=== PATIENT | female | born 1950 | race Caucasian/White ===

== ENCOUNTER 2018-06-04 08:56 | Emergency (ER) | payer OTHER ==
--- NOTE | 2018-06-04 09:04 | PDOC ---
History of Present Illness - General Chief Complaint: Pain, Acute Stated Complaint: LEFT ANKLE PAIN Time Seen by Provider: 06/04/18 09:03 History Source: Patient - History of Present Illness Initial Comments: 06/04/18 09:11 The patient is a 68 year old female who presents after a fall c/o L ankle pain. Patient states she was walking outside yesterday when she slipped on a pile of wet leaves and fell on her left side. Denies any head trauma or LOC. Was immediately ambulatory afterward. Used OTC NSAIDS and ice however since her ankle still hurt this morning she came to the ED for further evaluation. The patient denies chest pain, shortness of breath, abdominal pain, nausea/ vomiting, diarrhea/constipation, dysuria/hematuria. Past History - Past Medical History Allergies/Adverse Reactions: Allergies Allergy/AdvReac Type Severity Reaction Status Date / Time aspirin Allergy Intermediate gi upset Verified 06/04/18 08:56 Home Medications: Ambulatory Orders NK [No Known Home Medication] 06/04/18 Anemia: No Asthma: No Cancer: No Cardiac Disorders: No CVA: No COPD: No CHF: No Dementia: No Diabetes: No GI Disorders: No Disorders: No HTN: No Hypercholesterolemia: Yes Liver Disease: No Seizures: No Thyroid Disease: No - Surgical History Abdominal Surgery: Yes (REZA ING HERNIA REPAIR 1986) Appendectomy: No Cardiac Surgery: No Cholecystectomy: No Lung Surgery: No Neurologic Surgery: No Orthopedic Surgery: Yes (2009 BUNIONECTOMY RT) - Suicide/Smoking/Psychosocial Hx Smoking History: Former smoker Have you smoked in the past 12 months: No If you are a former smoker, when did you quit?: 2006 Information on smoking cessation initiated: No Hx Alcohol Use: No Drug/Substance Use Hx: No Substance Use Type: None Hx Substance Use Treatment: No Review of Systems - Review of Systems Constitutional: No: Chills, Fever Respiratory: No: Cough, Shortness of Breath Cardiac (ROS): No: Chest Pain, Lightheadedness, Palpitations ABD/GI: No: Constipated, Diarrhea, Nausea, Vomiting : No: Dysuria, Hematuria *Physical Exam - Vital Signs Last Vital Signs Temp Pulse Resp BP Pulse Ox 98.4 F 86 18 126/89 100 06/04/18 08:56 06/04/18 08:56 06/04/18 08:56 06/04/18 08:56 06/04/18 08:56 - Physical Exam General Appearance: Yes: Nourished, Appropriately Dressed Neck: positive: Trachea midline, Supple Respiratory/Chest: positive: Lungs Clear, Normal Breath Sounds Cardiovascular: positive: S1, S2. negative: JVD Vascular Pulses: Dorsalis-Pedis (R): 2+, Doralis-Pedis (L): 2+ Extremity: positive: Normal Capillary Refill, Other (L lateral malleolus swelling; full ROM, 2+ DP pulse) Integumentary: positive: Normal Color, Dry, Warm Neurologic: positive: Fully Oriented, Alert Medical Decision Making - Medical Decision Making 06/04/18 09:21 68 year old female s/p fall, now c/o L ankle pain and swelling. NVI, full ROM. TTP over lateral malleolus, will x-ray as per [facility] rules. Patient declining pain medication at this time. 06/04/18 10:15 L ankle XR shows L lateral distal fibular avulsion fracture. Posterior splint applied. Will discharge home with return precautions, orthopedic follow-up and NSAIDs for pain relief. I discussed the physical exam findings, ancillary test results and final diagnoses with the patient. I answered all of the patient's questions. The patient was satisfied with the care received and felt comfortable with the discharge plan and treatment plan. The patient will return to the Emergency Department with any new, persistent or worsening symptoms. *DC/Admit/Observation/Transfer Diagnosis at time of Disposition: Ankle fracture - Discharge Dispostion Disposition: HOME Condition at time of disposition: Good Decision to Admit order: No - Referrals Referrals: Adrian Burton MD [Staff Physician] - - Patient Instructions Printed Discharge Instructions: Ankle Fracture Additional Instructions: You can take Motrin (up to 3200 mg daily) for your pain. Please make a follow-up appointment with orthopedic surgery, Dr. Burton, for further evaluation. Return to the Emergency Department for any new/worsening/concerning symptoms. - Post Discharge Activity
[2018-06-04 09:07] VITALS: BP 126/89; PULSE 86; TEMP 98.4; BMI 25.9
--- NOTE | 2018-06-04 09:16 | PDOC ---
Attending Attestation - Resident Resident Name: Delia Caputo - ED Attending Attestation I have performed the following: I have examined & evaluated the patient, The case was reviewed & discussed with the resident, I agree w/resident's findings & plan, Exceptions are as noted - HPI HPI: 06/04/18 09:15 68 yo F with no pmhx here s/p slip and fall yesterday. slipped on some leaves. today c/o left ankle pain and swelling. worse with walking. has been ambulating with difficulty. no knee or hip injury. no head injury during fall. - Medical Decision Making 06/04/18 09:16 differential sprain vs. fracture. plan pain control and xray. 06/04/18 13:39 xray with avulsion fx distal fibula. posterior splint placed. dc with crutches, and ortho followup.
== END 2018-06-04 10:40 | disposition home or self-care (01) ==
LOC: FER 08:56
PROC: 2W3RX1Z Immobilization of Left Lower Leg using Splint (ICD-10-PCS; principal; 2018-06-04)
DX: S82.832A Other fracture of upper and lower end of left fibula, initial encounter for closed fracture (principal); W18.09XA Striking against other object with subsequent fall, initial encounter; Y93.89 Activity, other specified; Y92.9 Unspecified place or not applicable; Z87.891 Personal history of nicotine dependence; E78.00 Pure hypercholesterolemia, unspecified
CPT/HCPCS: 73610-TC-LT-FY; 99283-25

== ENCOUNTER 2020-03-14 13:49 | Emergency (ER) | payer OTHER ==
[2020-03-14 14:01] VITALS: BMI 25.4
--- NOTE | 2020-03-14 14:10 | PDOC ---
History of Present Illness - General Chief Complaint: Headache Stated Complaint: HEAD & NECK PAIN Time Seen by Provider: 03/14/20 13:59 History Source: Patient Exam Limitations: No Limitations - History of Present Illness Initial Comments: 69 y/o female presenting to [place] ER complaining of brief self limiting episode of intense pain to the left temporal region lasting approx. 10-15 seconds. Occurred on Wednesday (12 Mar 2020) while she was receiving the news about the unexpected of a close friend. Denies associated jaw pain, eye redness, or blurry vision. Also reports her brother within the past week. Since the episode, the pt has been experiencing intermittent episodes of left parietal and left lateral neck pain. Described as more of a dull sensation. Made worse with neck extension. Further complaints of a few seconds of blurry vision, right upper arm numbness, and difficulty walking (but did not trip, fall, grab the wall, or require halting of ambulation). Denies fevers, chills, difficulty swallowing, slurred speech, syncope, chest pain, or SOB. Pt denies a h/o similar episodes. Does not take any AC. Denies any known chronic medical conditions. Past History - Travel History Traveled outside of the country in the last 30 days: No Close contact w/someone who was outside of country & ill: No - Medical History Allergies/Adverse Reactions: Allergies Allergy/AdvReac Type Severity Reaction Status Date / Time aspirin Allergy Intermediate gi upset Verified 03/14/20 13:54 Home Medications: Ambulatory Orders NK [No Known Home Medication] 06/04/18 Anemia: No Asthma: No Cancer: No Cardiac Disorders: No CVA: No COPD: No CHF: No Dementia: No Diabetes: No GI Disorders: No Disorders: No HTN: No Hypercholesterolemia: Yes Liver Disease: No Seizures: No Thyroid Disease: No - Surgical History Abdominal Surgery: Yes (REZA ING HERNIA REPAIR 1986) Appendectomy: No Cardiac Surgery: No Cholecystectomy: No Lung Surgery: No Neurologic Surgery: No Orthopedic Surgery: Yes (2010 BUNIONECTOMY RT) - Reproductive History Is Patient Now?: No - Psycho-Social/Smoking History Smoking History: Former smoker Have you smoked in the past 12 months: No If you are a former smoker, when did you quit?: OVER 10 YEARS AGO Information on smoking cessation initiated: No - Substance Abuse Hx (Audit-C & DAST Scrn) How often the patient has a drink containing alcohol: Never Score: In Men: 4 or > Positive; In Women: 3 or > Positive: 0 Screen Result (Pos requires Nsg. Audit-10AR): Negative In the last yr the pt used illegal drug/Rx for NonMed reason: No Score: Yes response is considered Positive: 0 Screen Result (Positive result requires Nsg. DAST-10): Negative Review of Systems - Review of Systems Able to Perform ROS?: Yes Comments:: 10 point review of systems completed. All systems negative except as noted above. *Physical Exam - Vital Signs Last Vital Signs Temp Pulse Resp BP Pulse Ox 98.1 F 86 15 152/105 H 97 03/14/20 13:51 03/14/20 13:51 03/14/20 13:51 03/14/20 13:51 03/14/20 13:51 - Physical Exam Vital signs and nursing notes reviewed. Constitutional- Well-developed, well-nourished adult female in no acute distress or obvious discomfort. Observed walking into the department unassisted without obvious difficulty or gait derangement. Examined semi-fowlers on hospital stretcher. Answered all questions appropriately and completely. Head- Normocephalic. No obvious external signs of trauma. No deformities to facial bones. No localized temporal pain with tapping or jaw movement. Eyes- Pupils 3mm and PERRL. EOMI. Sclerae white. Conjunctiva moist and not injected. Ears- Hearing grossly intact. External auditory canals and tympanic membranes pearly tucker. No hemotympanum. Nose- No nasal discharge. Neck- Supple, trachea is midline. Oral cavity- Uvula midline. No tongue deviation. Cardiovascular / Chest- Regular rate and regular rhythm. No murmur, rubs, clicks, or gallops. Peripheral pulses- radial pulses full. Respiratory- Breathing unlabored. Speaking in multi-word responses without pausing. Equal chest rise and fall. Clear to auscultation bilaterally. No stridor, no wheezing, no rhonchi. Neuro- Alert and oriented x4. Moving all four extremities spontaneously. No facial asymmetry. No slurred speech. No focal deficits. No upper or lower extremity drift. Cranial nerves intact. Sensation to all four extremities intact. Proximal and distal strength 5/5. Floral Manager strength 5/5 - equal and symmetric. Plantar flexion and dorsiflexion 5/5. No nuchal rigidity. Skin- Warm, dry, and intact. Psych- Affect- appropriate. Mood- normal. Speech was non-labored, non- pressured. ED Treatment Course - LABORATORY CBC & Chemistry Diagram: 03/14/20 15:00 03/14/20 15:00 Medical Decision Making - Medical Decision Making 69 y/o female presenting with intermittent, atraumatic left sided neck and head pain with associated brief (few seconds) and self limiting neurologic symptoms. All occurring in the setting of emotionally charged week. Suspect likely MSK spasm vs strain. Low suspicion for CVA, TIA, carotid dissection vs temporal arteritis vs meningitis vs encephalitis with unremarkable neurologic exam. Will evaluate further with CTA of brain and neck. Ordered PO Tylenol and Lidoderm patch for symptom relief. 14 Mar 2020 17:51 PM Pt reassessed. Found sitting on bed reading. Reports pain has significantly improved with the Lidoderm patch. ED Attending will f/u pending CTA results. Anticipate discharge home. Case discussed with ED Attending Dr. Mckeon. Erik Sharif M.D., PGY3 Emergency Medicine Residency Discharge - Discharge Information Problems reviewed: Yes Clinical Impression/Diagnosis: Left-sided headache, Neck pain on left side Condition: Good - Follow up/Referral Referrals: Gary Au [Primary Care Provider] - - Patient Discharge Instructions - Post Discharge Activity
[2020-03-14] MEDS ORDERED: ACETAMINOPHEN 325 MG TABLET (FP) PO ONE (14:31)
[2020-03-14] MEDS ORDERED: LIDOCAINE 5% TOPICAL PATCH TP ONE (14:31)
--- NOTE | 2020-03-14 14:34 | PDOC ---
Attending Attestation - Resident Resident Name: Erik Sharif - ED Attending Attestation I have performed the following: I have examined & evaluated the patient, The case was reviewed & discussed with the resident, I agree w/resident's findings & plan, Exceptions are as noted - HPI HPI: 03/14/20 17:40 69 years old with no significant past medical history recently under a lot of stress with the loss of 2 close friends and family experienced a sudden onset headache the other day today with neck pain associated with transient blurry vision Currently asymptomatic except for mild anterior neck discomfort no history of trauma no sudden neck movements normal neurologic examination pain is mild 5 out of 10 persistent constant slightly worse with movement - Physicial Exam PE: 03/14/20 17:41 Vitals: Triage Vital signs reviewed General Appearance: No acute distress, well nourished well developed, Head: Atraumatic, Eyes: Pupils equal reactive round, extraocular movement intact Neck: Supple; no Nucal rigidity, No bruits Chest Wall: Nontender Cardiac: Regular rate and rhythym, no murmurs, no rubs, no gallops, Lungs: Clear to auscultation bilateral, good air movement bilaterally, Abdomen: Soft, non distended, normal bowel sounds, non tender to palpation Extremities: Full range of motion to all extremities, no cyanosis, clubbing, or edema Skin: Warm and dry, no rashes or lesions, no rash, no petechiae Neuro: AOX3; cranial Nerves 2-12 grossly intact, strength intact to all extremities, sensation intact to all extremities, gait normal Psych: Normal mood, normal affect - Medical Decision Making 03/14/20 17:41 69 years old anterior neck pain with brief episode of blurry vision We will CTA to rule out dissection aneurysm CT findings as dictated. Concern for left carotid plaque and saccular aneurysm No availability for clipping at our hospital Case discussed with neurosurgery at the [facility] given patient preference Case accepted by G Dr. George. Recommends IV nicardipine and IV Keppra prior to transfer Patient consented for transfer all questions answered Discharge - Discharge Information Problems reviewed: Yes Clinical Impression/Diagnosis: Left-sided headache, Neck pain on left side Condition: Good Disposition: TRANSFER ACUTE CARE/OTHER HOSP - Follow up/Referral Referrals: Gary Au [Primary Care Provider] - - Patient Discharge Instructions - Post Discharge Activity
[2020-03-14] MEDS ORDERED: LIDOCAINE 5% TOPICAL PATCH ONE (14:45)
[2020-03-14] MEDS ORDERED: ACETAMINOPHEN 325 MG TABLET (FP) ONE (14:45)
[2020-03-14 15:40] LABS: BASO % 0.5 % (0-2.0); HEMATOCRIT 38.9 % (32.4-45.2); HEMOGLOBIN 12.5 GM/dl (10.7-15.3); LYMPH % 32.3 % (8-40); MCH 26.8 pg (25.7-33.7); MCHC 32.2 g/dl (32.0-36.0); MEAN CELL VOLUME 83.3 fl (80-96); MEAN PLT VOLUME 7.6 fl (7.5-11.1); MONO % 6.3 % (3.8-10.2); NEUT % 58.9 % (42.8-82.8); PLATELET COUNT 398 K/MM3 (134-434); RBC 4.67 M/mm3 (3.60-5.2); RDW 13.3 % (11.6-15.6); WHITE BLOOD COUNT 6.1 K/mm3 (4.0-10.8)
[2020-03-14 15:48] LABS: ALBUMIN 3.8 g/dl (3.4-5.0); BILIRUBIN,TOTAL 0.6 mg/dl (0.2-1); CALCIUM 9.5 mg/dl (8.5-10); CREATININE 0.5 mg/dl (0.55-1.3); POTASSIUM 4.4 mmol/L (3.5-5.1)
[2020-03-14] MEDS ORDERED: levETIRAcetam 500 MG/5 ML INJECTION VIAL IVPB ONE ×2 (18:42→18:47)
[2020-03-14] MEDS ORDERED: NICARDIPINE 25 MG in DEXTROSE 5%-WATER - 240 ML IVPB SCH (18:45)
[2020-03-14] MEDS ORDERED: niCARdipine HCL 25 MG/10 ML AMPUL IVPB ONE (18:47)
[2020-03-14 19:30] VITALS: TEMP 98.5
[2020-03-14 19:47] VITALS: BP 130/90
[2020-03-14 20:16] VITALS: PULSE 84
[2020-03-14] MEDS ORDERED: LIDOCAINE PATCH REMOVAL MC SCH (22:00)
--- NOTE | 2020-03-15 10:40 | EKG ---
Test Reason : Blood Pressure : / mmHG Vent. Rate : 083 BPM Atrial Rate : 083 BPM P-R Int : 162 ms QRS Dur : 076 ms QT Int : 392 ms P-R-T Axes : 054 012 039 degrees QTc Int : 460 ms NORMAL SINUS RHYTHM POSSIBLE LEFT ATRIAL ENLARGEMENT NONSPECIFIC ST ABNORMALITY ABNORMAL ECG WHEN COMPARED WITH ECG OF 22-DEC-2012 11:41, NO SIGNIFICANT CHANGE WAS FOUND Confirmed by KAROLINA KUMAR MD ([id number]) on 03/15/2020 10:40:22 AM Referred By: DR BCUK Confirmed By:KAROLINA KUMAR MD
== END 2020-03-14 20:05 | disposition short-term general hospital (02) ==
LOC: FER 13:49
PROC: 3E033GC Introduction of Other Therapeutic Substance into Peripheral Vein, Percutaneous Approach (ICD-10-PCS; principal; 2020-03-14)
DX: G44.221 Chronic tension-type headache, intractable (principal); M54.2 Cervicalgia
CPT/HCPCS: 36415; 70496-TC; 70498-TC; 80053; 85025; 93005; 99285-25

== ENCOUNTER 2022-05-19 13:05 | Emergency (ER) | payer OTHER ==
[2022-05-19] MEDS ORDERED: SODIUM CHLORIDE 0.9% 1000 ML INFUS.BAG IV ONE (13:22)
[2022-05-19] MEDS ORDERED: ONDANSETRON 4 MG/2 ML VIAL IVPUSH ONE (13:22)
[2022-05-19] MEDS ORDERED: ACETAMINOPHEN 1000 MG/100 ML BAG IVPB ONE (13:22)
[2022-05-19 13:28] VITALS: RESP 18; BMI 23.8
[2022-05-19] MEDS ORDERED: ACETAMINOPHEN INJECTION 100 ML IVPB ONE (13:42)
[2022-05-19] MEDS ORDERED: ONDANSETRON 4 MG/2 ML VIAL ONE (13:42)
[2022-05-19 14:01] LABS: HEMATOCRIT 36.4 % (32.4-45.2); HEMOGLOBIN 12.7 G/dL (10.7-15.3); MCH 29.1 pg (25.7-33.7); MCHC 34.8 g/dl (32.0-36.0); MEAN CELL VOLUME 83.7 fl (80-96); MEAN PLT VOLUME 7.6 fl (7.5-11.1); RBC 4.35 10^6/uL (3.60-5.2); RDW 13.9 % (11.6-15.6); WHITE BLOOD COUNT 4.1 10^3/uL (4.0-10.8)
[2022-05-19 14:09] LABS: ALBUMIN 3.8 g/dl (3.4-5.0); BILIRUBIN,TOTAL 0.6 mg/dl (0.2-1); CALCIUM 8.9 mg/dl (8.5-10); CREATININE 0.6 mg/dl (0.55-1.3); TOT PROT 7.2 g/dl (6.4-8.2)
[2022-05-19 15:35] VITALS: BP 129/64; PULSE 72; TEMP 99
== END 2022-05-19 16:05 | disposition home or self-care (01) ==
LOC: FER 13:05
PROC: 3E033GC Introduction of Other Therapeutic Substance into Peripheral Vein, Percutaneous Approach (ICD-10-PCS; principal; 2022-05-19)
DX: J06.9 Acute upper respiratory infection, unspecified (principal)
CPT/HCPCS: 0241U-QW; 36415; 70450-TC; 71045-TC-FY; 80053; 85027; 99285-25

== ENCOUNTER 2022-10-12 05:26 | Day surgery (SDC) | payer OTHER ==
[2022-10-08 15:36] VITALS: BMI 24.0
[2022-10-12 08:48] VITALS: TEMP 98
[2022-10-12 09:22] VITALS: RESP 15
[2022-10-12 09:49] VITALS: BP 134/93; PULSE 65
== END 2022-10-12 10:00 | disposition home or self-care (01) ==
LOC: JASU-ENDO 05:26
PROVIDERS: ATTEND Internal Medicine Gastroenterology
PROC: 0DB98ZX Excision of Duodenum, Via Natural or Artificial Opening Endoscopic, Diagnostic (ICD-10-PCS; 2022-10-12)
PROC: 0DB78ZX Excision of Stomach, Pylorus, Via Natural or Artificial Opening Endoscopic, Diagnostic (ICD-10-PCS; 2022-10-12)
PROC: 0DB48ZX Excision of Esophagogastric Junction, Via Natural or Artificial Opening Endoscopic, Diagnostic (ICD-10-PCS; 2022-10-12)
PROC: 0DJD8ZZ Inspection of Lower Intestinal Tract, Via Natural or Artificial Opening Endoscopic (ICD-10-PCS; principal; 2022-10-12 08:00)
DX: Z12.11 Encounter for screening for malignant neoplasm of colon (principal); K57.30 Diverticulosis of large intestine without perforation or abscess without bleeding; K29.50 Unspecified chronic gastritis without bleeding; K21.00 Gastro-esophageal reflux disease with esophagitis, without bleeding; K44.9 Diaphragmatic hernia without obstruction or gangrene; K64.8 Other hemorrhoids; R63.4 Abnormal weight loss; Z68.24 Body mass index [BMI] 24.0-24.9, adult; Z86.010 Personal history of colon polyps
CPT/HCPCS: 43239; G0105; 88305-TC; 88342-TC

== ENCOUNTER 2023-04-28 10:42 | Emergency (ER) | payer OTHER ==
[2023-04-28 10:52] VITALS: BP 133/106; PULSE 71; RESP 16; TEMP 98.4; BMI 24.2
== END 2023-04-28 12:10 | disposition home or self-care (01) ==
LOC: FER 10:42
DX: M79.10 Myalgia, unspecified site (principal); R50.9 Fever, unspecified; B34.9 Viral infection, unspecified; R05.9 Cough, unspecified; J02.9 Acute pharyngitis, unspecified; Z20.822 Contact with and (suspected) exposure to COVID-19
CPT/HCPCS: 0241U-QW; 99283-25